=== PATIENT | male | born 1955 | race African-American/Black ===

== ENCOUNTER 2017-01-03 21:53 | Inpatient (IN) | payer OTHER ==
[~2017-01-03] VITALS: Ht 175.3 cm; Wt 96.2 kg
[2017-01-03] MEDS ORDERED: ASPIRIN 81MG TABLET PO STA (22:20)
[2017-01-03 23:14] LABS: BASOPHILS % 1.6 % (0.0-2.0); HEMATOCRIT. 41.7 % (42.0-52.0); HEMOGLOBIN. 14.3 g/dL (14.0-18.0); MEAN CORPUSCULAR VOLUME 90.7 fL (80.0-94.0); MEAN PLATELET VOLUME 8.1 fl (7.4-10.4); MONOCYTES % 9.9 % (2.0-8.0); NEUTROPHILS % 55.5 % (40.0-76.0); PLATELET 202 x1000/uL (130-400); RED CELL DISTRIBUTION WIDTH 12.9 % (11.6-14.6)
[2017-01-03 23:24] LABS: CARBON DIOXIDE 28 mEq/L (21-32); CHLORIDE 102 mEq/L (98-107)
[2017-01-03 23:32] LABS: TROPONIN I < 0.02 ng/mL (0.00-0.04)
[2017-01-04 00:42] VITALS: BP 112/65
[2017-01-04] MEDS ORDERED: ONDANSETRON HCL 4MG/2ML VIAL IV PRN (01:30)
[2017-01-04] MEDS ORDERED: DIPHENHYDRAMINE 50MG/ML VIAL IV PRN (01:30)
[2017-01-04] MEDS ORDERED: ACETAMINOPHEN 325MG TABLET PO PRN (01:30)
[2017-01-04] MEDS ORDERED: DOCUSATE SODIUM 100MG CAPSULE PO PRN (01:30)
[2017-01-04] MEDS ORDERED: MAGNESIUM/ALUMINUM HYDROXIDE/SIMETHICONE 30ML UDC PO PRN (01:30)
[2017-01-04] MEDS ORDERED: CLONIDINE 0.1MG TABLET PO PRN (01:30)
[2017-01-04 04:00] VITALS: BP 108/63
[2017-01-04] MEDS: SODIUM CHLORIDE 0.9% INJ 3ML FLUSH IVF SCH ×3 (04:53→21:12)
[2017-01-04 07:43] LABS: HDL CHOLESTEROL 28 mg/dL (40-59); LDL CHOLESTEROL 78 mg/dL (5-100); TROPONIN I < 0.02 ng/mL (0.00-0.04)
[2017-01-04 08:00] VITALS: BP 118/80
[2017-01-04 08:42] LABS: *AMPHETAMINES SCREEN URINE NEGATIVE (NEGATIVE); *BARBITURATES SCREEN URINE NEGATIVE (NEGATIVE); *BENZODIAZEPINES SCREEN URINE NEGATIVE (NEGATIVE); *COCAINE SCREEN URINE NEGATIVE (NEGATIVE); CANNABINOID URINE SCREEN NEGATIVE (NEGATIVE); METHADONE URINE SCREEN NEGATIVE (NEGATIVE); OPIATES URINE SCREEN NEGATIVE (NEGATIVE); PHENCYCLIDINE URINE SCREEN NEGATIVE (NEGATIVE)
[2017-01-04] MEDS: ASPIRIN 81MG EC TABLET PO SCH (09:52)
[2017-01-04 12:23] VITALS: BP_DIAS 82
[2017-01-04 16:00] VITALS: BP 114/66
[2017-01-04] MEDS ORDERED: REGADENOSON 0.4 MG/5 ML IV NR (17:15)
[2017-01-04 20:00] VITALS: BP 110/77
[2017-01-05] VITALS: BP 116/78
[2017-01-05 04:00] VITALS: BP 107/72
[2017-01-05] MEDS: SODIUM CHLORIDE 0.9% INJ 3ML FLUSH IVF SCH ×3 (04:56→20:41)
[2017-01-05 08:00] VITALS: BP 111/76
[2017-01-05] MEDS: ASPIRIN 81MG EC TABLET PO SCH (08:21)
[2017-01-05 12:00] VITALS: BP 116/79
[2017-01-05 16:00] VITALS: BP 104/66
[2017-01-05 20:00] VITALS: BP 104/62
[2017-01-06] VITALS: BP 112/75
[2017-01-06 04:00] VITALS: BP 120/76
[2017-01-06] MEDS: SODIUM CHLORIDE 0.9% INJ 3ML FLUSH IVF SCH (05:42)
[2017-01-06 07:30] VITALS: BP 114/75
[2017-01-06] MEDS ORDERED: REGADENOSON 0.4 MG/5 ML IV ONE (08:07)
[2017-01-06] MEDS: ASPIRIN 81MG EC TABLET PO SCH (09:08)
[2017-01-06 13:00] VITALS: BP 110/69
[2017-01-06 14:49] VITALS: BP 110/69
== END 2017-01-06 15:15 | disposition home or self-care (01) | DRG 206 ==
LOC: ER 23:01 → 7WST 23:38 → ENRESERV 23:53 → 7WST 01-04 04:01
PROVIDERS: ADMIT Internal Medicine; ATTEND Internal Medicine
DX: M94.0 Chondrocostal junction syndrome [Tietze] (principal); K75.9 Inflammatory liver disease, unspecified; I25.9 Chronic ischemic heart disease, unspecified; K21.9 Gastro-esophageal reflux disease without esophagitis; G43.909 Migraine, unspecified, not intractable, without status migrainosus; E78.5 Hyperlipidemia, unspecified; F17.210 Nicotine dependence, cigarettes, uncomplicated; M19.90 Unspecified osteoarthritis, unspecified site; Z82.49 Family history of ischemic heart disease and other diseases of the circulatory system; Z87.11 Personal history of peptic ulcer disease; Z72.89 Other problems related to lifestyle; Z87.81 Personal history of (healed) traumatic fracture
CPT/HCPCS: 36415; 71010; 78452; 80053; 80061; 80305; 83690; 83880; 84443; 84484; 85025; 85379; 93005; 93017; 99285; 99406; A9500; J2785

== ENCOUNTER 2017-03-08 17:41 | Emergency (ER) | payer OTHER ==
[~2017-03-08] VITALS: Ht 175.3 cm; Wt 98.0 kg
[2017-03-08 19:10] VITALS: BP 131/78
[2017-03-08] MEDS ORDERED: OMEP20CA10 PO (19:16)
== END 2017-03-08 21:30 | disposition left against medical advice (07) ==
LOC: ER 20:39
DX: R51 Headache (principal); Z53.21 Procedure and treatment not carried out due to patient leaving prior to being seen by health care provider